=== PATIENT | male | born 1945 | race African-American/Black ===

== ENCOUNTER → 2018-05-08 | Outpatient (CLI) | payer OTHER ==
[~2018-05-08] MED LIST: ACET500T68 PO; ASPI81TA50 PO; FLUT100D IH; GLIP5TAB10 PO; GUAI600T47 PO; IOHEXOL 180 MG/ML 10 ML VIAL. ONE; LEVO125T5 PO; LISI-130 PO; LORA10TA3 PO; NAPR500T8 PO; NIFE90TA PO; SPIR25TA5 PO; TERA10CA3 PO; methylPREDNISolone ACETATE 40 MG/ML VIAL. ONE; methylPREDNISolone ACETATE 80 MG/ML VIAL. ONE
--- NOTE | 2018-05-08 14:27 | PAIN ---
DATE OF SERVICE: 05/08/2018 INITIAL CONSULTATION FOR PAIN CLINIC CHIEF COMPLAINT: Low back and right lower extremity pain. HISTORY OF PRESENT ILLNESS: This is a 72-year-old male who presents with a history of pain in the low back since about 2004, worse over the past year, increasing with walking and standing, better with sitting or lying down. The patient reports the pain is across the low back, more on the right side than the left, into the right posterior gluteus, posterior thigh, lateral thigh as well as the medial anterior thigh and medial lower leg as well as the posterior lower leg. Reports some numbness and tingling in his foot too, but attributes this some to diabetic neuropathy that he has. The patient reports the pain is becoming more constant. It is aching pain and across the low back, shooting and stabbing into the right lower extremity. The patient reports it is a 10 on a scale of 10 with family and home responsibilities. His disability rating goes from 0-10, 10 being the worst, 10 with recreation, social activity and sexual behavior; occupation as a 9; 6 with self-care and 1 with life support activities. The patient did have an MRI scan of the lumbar spine showing a multilevel degenerative change, worse from L2-L3 to L4-L5, with severe central canal stenosis and foraminal narrowing, each of these levels causing severe canal and bilateral foraminal stenosis, L2-L3, L3-L4 and L4-L5 with moderate to severe right and mild left foraminal stenosis at L5-S1. The patient has had physical therapy in the past, which was not significantly helpful. He also has had physical therapy for his knees and currently doing exercise as well. The patient is taking Tylenol, which has helped, but only by about 20%. He has had no other modalities of the treatments or chiropractic modalities or other medications at this time. The patient reports it is worse with walking, standing with significant fatigability with the right leg compared to the left, but no overt motor loss. PAST MEDICAL HISTORY: Significant for type 2 diabetes, hearing loss, congestive heart failure, no previous surgeries, and history of arthritis. CURRENT MEDICATIONS: Include daily baby aspirin, fluticasone, glipizide, lisinopril, acetaminophen, Mucinex, terazosin, spironolactone, Procardia, naproxen and loratadine. ALLERGIES: The patient has no known drug allergies. FAMILY HISTORY: Significant for no major medical problems or conditions he is aware of. SOCIAL HISTORY: The patient does not drink alcohol, does not smoke. Does not use any illegal, illicit or recreational drugs. He is single. Lives locally in [place], [place]. REVIEW OF SYSTEMS: The patient's review of systems is positive for those items mentioned in history of present illness. All systems reviewed and otherwise negative. It is complete, full and well documented on the patient's chart. PHYSICAL EXAMINATION: VITAL SIGNS: The patient's blood pressure is ____, pulse is 78, respirations 18, temperature is 97.9 degrees Fahrenheit, height is 5 feet 9 inches, weight is 321 pounds. GENERAL: The patient is awake, alert, oriented, appropriate, has very pleasant demeanor. HEENT: Shows normocephalic, atraumatic. Extraocular movements are intact and symmetrical. Oral cavity shows mucous membranes moist and pink. Dentition is intact. NECK: Shows anterior throat supple without palpable lymphadenopathy noted. Swallow reflex is symmetrical. CHEST: Shows normal with inspection. Breath sounds are clear to auscultation bilaterally. HEART: Shows S1, S2 clear. No murmurs auscultated. ABDOMEN: Soft, nontender, nondistended, obese. No palpable organomegaly is noted. No rebound or guarding demonstrated. MUSCULOSKELETAL: Back shows spine grossly in the midline, slight exaggeration of thoracic kyphosis and minor flattening of lumbar lordotic curvature. Lumbar paraspinous muscle shows symmetrical on inspection; on palpation shows some moderate tenderness diffusely throughout the middle and lower distribution of paraspinous muscles, but only diffusely without significant radiation. The patient's lower extremities show deep tendon reflexes at 1+ in the patellar and tendo-calcaneus tendons. Motor exam is strong with approximately 4 on a scale of 5, but equal and symmetrical dorsiflexion, extension, quadriceps and hamstring flexion bilaterally. Peripheral pulses are 1+ posterior tibia. No peripheral edema is noted. Lower extremities are warm and dry to touch, equal in color and appearance. The patient has negative straight leg raise bilaterally as is negative Gaenslen and Jori maneuver bilaterally as well. The patient is able to stand, has some difficulty from seated to a standing position with pain reported, but with standing has a slightly shuffling gait. Does not appear to favor the right or left lower extremity significantly, but is using a cane in his right hand to ambulate. SKIN: Shows warm and dry, good turgor. No edema. No sores, rashes or bruising. IMPRESSION: 1. This is a 72-year-old male with long history of low back pain, right lower extremity pain, worse over the past year. 2. MRI scan of the lumbar spine as noted. 3. Obesity. 4. Type 2 diabetes. PLAN: Options were discussed with the patient including conservative medical management, physical therapies, interventional techniques and he would like to pursue interventional techniques. We discussed a lumbar epidural steroid injection using description as well as anatomical models to describe the procedure. Risks were then discussed including, but not limited to, bleeding, infection, possibility of epidural hematoma and subsequent neurological compromise, dural puncture, headaches, spinal cord and/or nerve damage, side effects of steroid medication and poor results regarding pain control. The patient understands and wished to proceed. The patient will return to clinic in approximately 2 weeks for a followup, was counseled on return appointment, activity level and side effects to be aware of. DIAGNOSES: Lumbar radiculopathy with lumbar degenerative disk disease, lumbar spinal stenosis. PROCEDURE: Lumbar epidural steroid injection, translaminar approach at the L5-S1 level using C-arm fluoroscopic guidance under sterile prep and drape using local anesthetic. MEDICATIONS INJECTED: A total of 120 mg Depo-Medrol plus 10 mL of preservative-free normal saline and 2 mL of Isovue for contrast. CONDITION AT DISCHARGE: Stable. The patient tolerated procedure well, had no complications. SMITA MERCADO MD DR: CHRISTY/dontae JOB#: [id number] / [id number]
== END | disposition home or self-care (01) ==
LOC: PNCL 10:35
PROVIDERS: ATTEND Anesthesiology
DX: M51.16 Intervertebral disc disorders with radiculopathy, lumbar region (principal); M48.061 Spinal stenosis, lumbar region without neurogenic claudication; E11.9 Type 2 diabetes mellitus without complications; E66.9 Obesity, unspecified; H91.90 Unspecified hearing loss, unspecified ear; Z79.82 Long term (current) use of aspirin; Z79.84 Long term (current) use of oral hypoglycemic drugs
CPT/HCPCS: 62323; J1030; J1040; Q9965

== ENCOUNTER → 2018-05-28 | Outpatient (CLI) | payer OTHER ==
[~2018-05-28] MED LIST changes: -IOHEXOL 180 MG/ML 10 ML VIAL. ONE; -methylPREDNISolone ACETATE 40 MG/ML VIAL. ONE; -methylPREDNISolone ACETATE 80 MG/ML VIAL. ONE
--- NOTE | 2018-05-28 11:55 | PAIN ---
DATE OF SERVICE: 05/28/2018 PROGRESS NOTE FOR PAIN CLINIC DIAGNOSES: Lumbar radiculopathy with lumbar degenerative disk disease and lumbar spinal stenosis. HISTORY OF PRESENT ILLNESS: The patient is a 72-year-old male who returns for followup status post lumbar epidural steroid injection x 1. The patient reports about 80% improvement in his low back pain, doing very well. The patient reports pain is still decreased even after about 2-1/2 weeks since his injection. The patient reports he is sleeping well at night. He is increasing his distance walking, doing household activities with greater ease and comfort, getting around much better, traveling with ease and comfort as well. The patient reports he still has some pain across the low back and into his right lower extremity but minimal in the lower extremity. At this point, the patient reports the pain is 8 on a scale 10 at its worst, 7 on average, 7 at its least and is a 7 today. The patient reports it is aching, tight, cramping, severe, occasionally shooting into the right leg but very unusual now to do this with ambulation. The patient reports no new motor or sensory deficits and no new bowel or bladder incontinence or other complaints. PHYSICAL EXAMINATION: VITAL SIGNS: The patient's blood pressure 134/72, pulse 71, respirations 16 and temperature is 97.3 degrees Fahrenheit. Weight is 321 pounds. GENERAL: The patient awake, alert, oriented, appropriate and very pleasant demeanor. HEENT: Head shows normocephalic and atraumatic. Extraocular movements are intact and symmetrical. Oral cavity, mucous membranes are moist and pink. Dentition is intact. NECK: Shows anterior throat supple, without palpable lymphadenopathy noted. Swallow reflex symmetrical. CHEST: Shows normal on inspection. Breath sounds are clear to auscultation bilaterally. HEART: Shows S1 and S2 clear. No murmurs auscultated. ABDOMEN: Soft, obese, nontender and nondistended. No palpable organomegaly is noted. No rebound or guarding demonstrated. BACK: Shows spine grossly in the midline. Normal-appearing cervical lordotic curvature, thoracic kyphotic curvature and some minor flattening of lumbar lordotic curvature. Lumbar paraspinal musculature shows symmetrical on inspection, with palpation shows some moderate tenderness but only diffusely in the low lumbar distribution bilaterally without radiation. The patient has good rotational motion of the lumbar spine, both laterally as well extension and flexion without difficulty. EXTREMITIES: Lower extremities show deep tendon reflexes 1+ in the patellar and tendo-calcaneus tendons are equal. Motor exam is 4 on a scale of 5 but equal and symmetrical with dorsiflexion, extension, quadriceps and hamstring flexion. Peripheral pulses are 1+ posterior tibia. No peripheral edema noted bilaterally. Options were discussed with the patient. The patient's old chart was reviewed as well as his current medication regimen updated. Current review of systems updated today as well. We will hold on any further injections at this time per the patient's request as he is doing quite a bit better with the low back pain. The patient complains still some knee pain and some right hip pain. We will hold on at this time. The patient will return on an as needed basis. The patient was encouraged to increase his activity as tolerated, but to be cautious with lifting and bending and stooping activities. The patient will follow up at this time an as needed basis. SMITA MERCADO MD DR: CHRISTY/dontae JOB#: [id number] / [id number]
== END | disposition home or self-care (01) ==
LOC: PNCL 11:07
PROVIDERS: ATTEND Anesthesiology
DX: M51.16 Intervertebral disc disorders with radiculopathy, lumbar region (principal); M48.061 Spinal stenosis, lumbar region without neurogenic claudication
CPT/HCPCS: G0463

== ENCOUNTER → 2018-06-25 | Outpatient (CLI) | payer OTHER ==
[~2018-06-25] MED LIST changes: +IOHEXOL 180 MG/ML 10 ML VIAL. ONE; +methylPREDNISolone ACETATE 40 MG/ML VIAL. ONE; +methylPREDNISolone ACETATE 80 MG/ML VIAL. ONE
--- NOTE | 2018-06-25 20:07 | PAIN ---
DATE OF SERVICE: 06/25/2018 PROGRESS NOTE FOR PAIN CLINIC DIAGNOSES: Lumbar radiculopathy with lumbar spinal stenosis, lumbar degenerative disk disease. HISTORY OF PRESENT ILLNESS: The patient is a 72-year-old male who returns for followup status post lumbar epidural steroid injection x 1. The patient reports back to 80% improvement. We have seen him back on May 28 after his injection, which was on May 08 and he was doing quite well, wanted to wait on any further interventions. The patient reports the pain is beginning to return now in the low back into the right lower extremity, mostly in the posterior gluteus, posterior thigh but only minimal compared to what it was before but it is becoming more noticeable daily. The patient reports it is increasing, rated as 7 on a scale of 10 at its worst, 5 on average, 5 at its least and is a 5 today. Cramping pain, aching, dull, occasionally shooting and on and off in intensity, worse with walking and standing but is still doing better with increased activity, walking and doing work activities as well as a home activity and traveling with greater ease. The patient reports he is sleeping well at night, generally does not awaken her from sleep. No new motor or sensory deficits and no new bowel or bladder incontinence. PHYSICAL EXAMINATION: VITAL SIGNS: The patient's blood pressure 166/67, pulse 78, respirations 18 and temperature 97.5 degrees Fahrenheit. Height is 5 feet 9 inches and weighs 322 pounds. GENERAL: The patient is awake, alert, oriented, appropriate and very pleasant demeanor. HEENT: Head shows normocephalic and atraumatic. Extraocular movements are intact and symmetrical. Oral cavity: Mucous membranes moist and pink. Dentition is intact. NECK: Shows anterior throat supple without palpable lymphadenopathy noted. Swallow reflex symmetrical. CHEST: Shows normal on inspection. Breath sounds clear to auscultation bilaterally. HEART: Shows S1 and S2 clear. No murmurs auscultated. ABDOMEN: Obese but soft, nontender and nondistended. BACK: Shows spine grossly in the midline, normal-appearing cervical lordotic curvature, thoracic kyphotic curvature and lumbar lordotic curvature. Lumbar paraspinous muscle shows symmetrical on inspection and on palpation shows some moderate tenderness but only diffusely without significant radiation. The patient shows good rotational motion of the lumbar spine, both laterally as well as extension and flexion without difficulty. EXTREMITIES: Lower extremities show deep tendon reflexes 1+ in the patella and tendo-calcaneus tendons. Motor exam approximately 4 on a scale of 5 but equal and symmetrical with dorsiflexion, extension, quadriceps and hamstring flexion. Peripheral pulses are 1+ posterior tibial. No peripheral edema is noted. Options were discussed with the patient. The patient's old chart was reviewed as well as his current medication regimen updated. Current review of systems updated today as well. We will proceed with a second in the series of lumbar epidural steroid injection today with fluoroscopic guidance. Risks were again discussed including, but not limited to bleeding, infection, possibility of epidural hematoma, subsequent neurological compromise, dural puncture headache, spinal cord and/or nerve damage, side effects of steroid medication and poor results regarding pain control. The patient understands and wished to proceed. The patient will return to the clinic in approximately 2 weeks for followup, was counseled as to return appointment, activity level and side effects to be aware of. DIAGNOSES: Lumbar radiculopathy with lumbar spinal stenosis and lumbar degenerative disk disease. PROCEDURE: Lumbar epidural steroid injection, translaminar approach at the L5-S1 level using C-arm fluoroscopic guidance under sterile prep and drape using local anesthetic. MEDICATION INJECTED: A total of 120 mg Depo-Medrol plus 10 mL of preservative-free normal saline and 2 mL of Isovue for contrast. CONDITION AT DISCHARGE: Stable. The patient tolerated the procedure well and had no complications. SMITA MERCADO MD DR: CHRISTY/dontae JOB#: [id number] / [id number]
== END | disposition home or self-care (01) ==
LOC: PNCL 10:20
PROVIDERS: ATTEND Anesthesiology
DX: M51.16 Intervertebral disc disorders with radiculopathy, lumbar region (principal); M48.061 Spinal stenosis, lumbar region without neurogenic claudication
CPT/HCPCS: 62323; J1030; J1040; Q9965

== ENCOUNTER → 2018-07-23 | Outpatient (CLI) | payer OTHER ==
[~2018-07-23] MED LIST changes: -IOHEXOL 180 MG/ML 10 ML VIAL. ONE; -methylPREDNISolone ACETATE 40 MG/ML VIAL. ONE; -methylPREDNISolone ACETATE 80 MG/ML VIAL. ONE
--- NOTE | 2018-07-23 23:46 | PAIN ---
DATE OF SERVICE: 07/23/2018 DIAGNOSES: Lumbar radiculopathy with lumbar spinal stenosis, lumbar degenerative disk disease. HISTORY OF PRESENT ILLNESS: The patient for a 72-year-old male who returns for followup status post lumbar epidural steroid injection x 2. The patient reports about 90% improvement after the last injection, which was 1 month ago. The patient reports still pain in the low back, but very infrequent. The patient reports it occasionally radiates into the lower extremity, right greater than left, but only with excessive walking or standing. The patient has been walking greater distances, doing activities at home as well as household activities, travelling with greater ease, sleeping with great comfort, not awakening him from sleep at this time. The patient reports his pain is cramping and aching, tight in the low back itself and also some knee pain bilaterally, which are degenerative changes as well, but the patient reports his pain is back. It is a 7 on a scale of 10 at its worst, average and at its least and is a 7 today. The patient reports no new motor or sensory deficits, no new bowel or bladder incontinence or other complaints. PHYSICAL EXAMINATION: VITAL SIGNS: The patient's blood pressure is 157/69, pulse 77, respirations 18, temperature 97.7 degrees Fahrenheit, height is 5 feet 9 inches, weight is 326 pounds. GENERAL: The patient is awake, alert, oriented, appropriate, very pleasant demeanor. HEENT: Exam shows normocephalic, atraumatic. Extraocular movements are intact and symmetrical. Oral cavity: Mucous membranes moist and pink. Dentition is intact. NECK: Shows anterior throat supple without palpable lymphadenopathy noted. Swallow reflex is symmetrical. CHEST: Shows normal on inspection. Breath sounds are clear to auscultation bilaterally. HEART: Shows S1, S2 clear. No murmurs auscultated. ABDOMEN: Soft, nontender, nondistended, obese. No palpable organomegaly is noted. No rebound or guarding demonstrated. BACK: Shows spine grossly in the midline. Normal appearing thoracic kyphosis and lumbar lordotic curvature. Lumbar paraspinous muscle shows symmetrical on inspection. On palpation shows some moderate tenderness, but only diffusely without radiation. The patient's back shows good rotational motion both laterally as well as extension and flexion without pain reported. EXTREMITIES: Lower extremities show deep tendon reflexes at 1+ in the patellar and tendo calcaneus tendons are equal. Motor exam is approximately 4 on a scale of 5, but symmetrical with dorsiflexion, extension, quadriceps and hamstring flexion. Peripheral pulses are 1+ posterior tibia. No peripheral edema is noted bilaterally. Options were discussed with the patient. The patient's old chart was reviewed as was his current medication regimen updated. Current review of systems is updated today as well and we will hold on any further injections at this time as the patient is doing quite a bit better. We would like to wait and see how he does with time. He is encouraged to increase his activity as tolerated. He was doing stretching and strengthening exercises as well. We showed him some stretching exercises to do with low back as well as followup with his orthopedic physician at the [facility] for his knee pain. The patient can follow up in approximately one month tentatively or sooner if necessary. SMITA MERCADO MD DR: CHRISTY/dontae JOB#: [id number] / [id number]
== END | disposition home or self-care (01) ==
LOC: PNCL 10:50
PROVIDERS: ATTEND Anesthesiology
DX: M51.16 Intervertebral disc disorders with radiculopathy, lumbar region (principal); M48.061 Spinal stenosis, lumbar region without neurogenic claudication
CPT/HCPCS: G0463

== ENCOUNTER → 2018-08-20 | Outpatient (CLI) | payer OTHER ==
[~2018-08-20] MED LIST changes: +IOHEXOL 180 MG/ML 10 ML VIAL. ONE; +methylPREDNISolone ACETATE 40 MG/ML VIAL. ONE; +methylPREDNISolone ACETATE 80 MG/ML VIAL. ONE
--- NOTE | 2018-08-21 00:21 | PAIN ---
DATE OF SERVICE: 08/20/2018 DIAGNOSES: Lumbar radiculopathy with lumbar spinal stenosis, lumbar degenerative disk disease. HISTORY OF PRESENT ILLNESS: The patient is a 72-year-old male who returns for followup status post lumbar epidural steroid injection x 2. The patient reports good improvement, about 50% at least in the low back and right lower extremity. The patient reports still some pain in the low back and right leg, but has it for several weeks, was doing quite a bit better, was increasing his distance walking, doing better activity at work and household activities, traveling with greater ease and comfort. The patient reports he is sleeping better at night, still does not awaken him from sleep. The patient reports his pain now has returned; however, over the past few days is 8 on a scale of 10 at its worst and average and at its least it is 8 today. The patient reports it is cramping, aching, tight, shooting in the right posterior gluteus, posterior thigh, posterior calf, again worse with walking and standing, better with sitting or lying down. The patient reports no new motor or sensory deficits, no new bowel or bladder incontinence or other complaints. PHYSICAL EXAMINATION: VITAL SIGNS: The patient's blood pressure is 128/58, pulse 84, respirations 18, temperature 97.4 degrees Fahrenheit, height is 5 feet 9 inches, weight is 331 pounds. GENERAL: The patient is awake, alert, oriented, appropriate, very pleasant demeanor. HEENT: Shows normocephalic, atraumatic. Extraocular movements are intact and symmetrical. Oral cavity: Mucous membranes moist and pink. Dentition is intact. NECK: Shows anterior throat supple without palpable lymphadenopathy noted. Swallow reflex is symmetrical. CHEST: Shows normal with inspection. Breath sounds clear to auscultation bilaterally. HEART: Shows S1, S2 clear. No murmurs auscultated. ABDOMEN: Soft, nontender, nondistended. No palpable organomegaly is noted. No rebound or guarding demonstrated. BACK: Shows spine grossly in the midline. Slight exaggeration of thoracic kyphosis, some minor flattening of lumbar lordotic curvature. Lumbar paraspinous muscle shows symmetrical on inspection, on palpation shows some moderate tenderness diffusely, but only diffusely bilaterally without radiation. The patient shows good rotational motion of the lumbar spine, both laterally as well as extension and flexion. EXTREMITIES: Lower extremities show deep tendon reflexes 1+/4 in the patellar and tendo calcaneus tendons. Motor exam is approximately 4 on a scale of 5, but symmetrical with dorsiflexion, extension, quadriceps and hamstring flexion and equal. Peripheral pulses are 1+ posterior tibia. No peripheral edema is noted. Options were discussed with the patient. The patient's old chart was reviewed as was his current medication regimen updated. Current review of systems updated today as well. We will proceed with a third in the series of lumbar epidural steroid injection today with fluoroscopic guidance. Risks were again discussed including, but not limited to bleeding, infection, possibility of epidural hematoma, subsequent neurological compromise, dural puncture, headaches, spinal cord and/or nerve damage, side effects of steroid medication and poor results regarding pain control. The patient understands and wished to proceed. The patient to return to clinic in approximately 2 weeks for followup, was counseled as to return appointment, activity level and side effects to be aware of. DIAGNOSIS: Lumbar radiculopathy with lumbar spinal stenosis, lumbar degenerative disk disease. PROCEDURE: Lumbar epidural steroid injection, translaminar approach L5-S1 level using C-arm fluoroscopic guidance under sterile prep and drape using local anesthetic. MEDICATION INJECTED: A total of 120 mg of Depo-Medrol plus 10 mL of preservative-free normal saline and 2 mL of isovue for contrast. Condition on discharge was stable. The patient tolerated the procedure well, had no complications. SMITA MERCADO MD DR: CHRISTY/dontae JOB#: [id number] / [id number]
== END | disposition home or self-care (01) ==
LOC: PNCL 10:56
PROVIDERS: ATTEND Anesthesiology
DX: M51.16 Intervertebral disc disorders with radiculopathy, lumbar region (principal); M48.061 Spinal stenosis, lumbar region without neurogenic claudication
CPT/HCPCS: 62323; J1030; J1040; Q9965

== ENCOUNTER → 2019-03-06 | Outpatient (CLI) | payer OTHER ==
--- NOTE | 2019-03-06 19:28 | PAIN ---
DATE OF SERVICE: 03/06/2019 PROGRESS NOTE FOR PAIN CLINIC DIAGNOSES: Lumbar radiculopathy with lumbar spinal stenosis, lumbar degenerative disk disease. HISTORY OF PRESENT ILLNESS: The patient is a 73-year-old male who returns for followup status post lumbar epidural steroid injections, last seen on 08/20/2018. The patient did very well with this, about 80% improvement, but the pain has returned now over the past month in the low back and the bilateral lower extremities, worse on the right than the left. The patient reports it is a 9 on a scale of 10 at its worst in the past week, 9 on average, 9 at its least and is a 9 today. The patient reports it is aching, shooting, becoming unbearable, severe with walking, standing, better with sitting or lying down, does not awaken him from sleep at night, with standing, even for a few minutes, the pain begins to become more noticeable and then after about 15 minutes or so, he must sit down and rest to get the pain decreased. The patient reports having difficulty taking care of household activities and is requesting some assistance at home. We will give him a note requesting us today by his request also. PHYSICAL EXAMINATION: VITAL SIGNS: The patient's blood pressure 134/65, pulse 76, respirations 18, temperature 97.8 degrees Fahrenheit, height is 5 feet 8 inches, weight is 335 pounds. GENERAL: The patient is awake, alert, oriented, appropriate, very pleasant demeanor. HEENT: Head shows normocephalic, atraumatic. Extraocular movements are intact and symmetrical. Oral cavity: Mucous membranes moist and pink. Dentition is intact. NECK: Shows anterior throat supple without palpable lymphadenopathy noted. Swallow reflex symmetrical. CHEST: Shows normal on inspection. Breath sounds clear to auscultation bilaterally. HEART: Shows S1, S2 clear. No murmurs auscultated. ABDOMEN: Soft, nontender, nondistended. No palpable organomegaly is noted. No rebound or guarding demonstrated. BACK: Shows spine grossly in the midline. Normal appearing thoracic kyphosis minor flattening of lumbar lordotic curvature. Lumbar paraspinous muscle shows symmetrical on inspection, on palpation shows some moderate tenderness diffusely without significant radiation. EXTREMITIES: The patient's lower extremities show deep tendon reflexes at 1+ in the patellar and tendo-calcaneus tendons. Motor exam is 4 on a scale of 5, but symmetrical dorsiflexion, extension, quadriceps and hamstring flexion and equal. Peripheral pulses are 1+ posterior tibial. No peripheral edema is noted. Options were discussed with the patient. The patient's old chart was reviewed as his current medication regimen updated. Current review of systems updated today as well and we will proceed with a lumbar epidural steroid injection today with fluoroscopic guidance. Risks were again discussed including, but not limited to bleeding, infection, possibility of epidural hematoma, subsequent neurological compromise, dural puncture, headaches, spinal cord and/or nerve damage, side effects of steroid medication and poor results regarding pain control. The patient understands and wished to proceed. The patient will return to clinic in approximately 2 weeks for followup, was counseled as to return appointment, activity level and side effects to be aware of. DIAGNOSES: Lumbar radiculopathy with lumbar spinal stenosis, lumbar degenerative disk disease. PROCEDURE: Lumbar epidural steroid injection, translaminar approach L5-S1 level using C-arm fluoroscopic guidance under sterile prep and drape using local anesthetic. MEDICATION INJECTED: A total of 120 mg Depo-Medrol plus 10 mL of preservative-free normal saline and 2 mL of contrast. CONDITION AT DISCHARGE: Stable. The patient tolerated the procedure well, had no complications. SMITA MERCADO MD DR: CHRISTY/dontae JOB#: [id number] / [id number]
== END ==
LOC: PNCL 08:09
PROVIDERS: ATTEND Anesthesiology
DX: M51.16 Intervertebral disc disorders with radiculopathy, lumbar region (principal); M48.061 Spinal stenosis, lumbar region without neurogenic claudication
CPT/HCPCS: 62323; J1030; J1040; Q9965

== ENCOUNTER → 2019-04-22 | Outpatient (CLI) | payer OTHER ==
--- NOTE | 2019-04-22 13:57 | PAIN ---
DATE OF SERVICE: 04/22/2019 PROGRESS NOTE FOR PAIN CLINIC DIAGNOSES: Lumbar radiculopathy with lumbar spinal stenosis, lumbar degenerative disk disease. HISTORY OF PRESENT ILLNESS: The patient is a 73-year-old male who returns for followup status post lumbar epidural steroid injection x 1 in this series, did very well after the last injection with about 80% improvement. The patient reports the pain is returning now after the first few weeks in the low back into the right lower extremity, posterior gluteus, posterior thigh, posterior calf, some on the anterior thigh as well, worse with walking, standing, changing positions. The patient reports it is aching, sharp, cramping, constant and shooting. The patient reports it is an 8 on a scale of 10 at all times, worst, least and average over the past week and is an 8 today. The patient reports it does not awaken him from sleep at night, better with sitting or lying down, worse with walking, standing, changing positions. PHYSICAL EXAMINATION: VITAL SIGNS: The patient's blood pressure 122/57, pulse 83, respirations 18, temperature 97.3 degrees Fahrenheit, height is 5 feet 9 inches, weight is 334 pounds. GENERAL: The patient is awake, alert, oriented, appropriate, very pleasant demeanor. HEENT: Shows normocephalic, atraumatic. Extraocular movements are intact and symmetrical. Oral cavity, mucous membranes are moist and pink. Dentition is intact. NECK: Shows anterior throat supple without palpable lymphadenopathy noted. Swallow reflex symmetrical. CHEST: Shows normal on inspection. Breath sounds clear bilaterally. HEART: Shows S1, S2 clear. No murmurs auscultated. ABDOMEN: Soft, nontender, nondistended. BACK: Shows spine grossly in the midline. Normal-appearing thoracic kyphosis and minor flattening of lumbar lordotic curvature. Lumbar paraspinous muscle shows symmetrical, but with palpation shows some mild tenderness diffusely in the low lumbar distribution only without radiation. The patient has good rotational motion of lumbar spine, both laterally as well as extension and flexion without significant difficulty. EXTREMITIES: Lower extremities show deep tendon reflexes 1+ in the patellar and tendo calcaneus tendons. Motor exam is approximately 4 on a scale of 5, but symmetrical and equal with dorsiflexion, extension, quadriceps and hamstring flexion. Peripheral pulses are 1+ posterior tibia. No peripheral edema is noted. Options were discussed with the patient. The patient's old chart was reviewed as his current medication regimen updated. Current review of systems updated today as well. We will proceed with a second in a series of lumbar epidural steroid injection today with fluoroscopic guidance. Risks were again discussed including, but not limited to bleeding, infection, possibility of epidural hematoma, subsequent neurologic compromise, dural puncture, headaches, spinal cord and/or nerve damage, side effects of steroid medication and poor results regarding pain control. The patient understands and wished to proceed. The patient will return to the clinic in approximately 2 weeks for followup. She was counseled as to return appointment, activity level and side effects to be aware of. DIAGNOSIS: Lumbar radiculopathy with lumbar spinal stenosis, lumbar degenerative disk disease. PROCEDURE: Lumbar epidural steroid injection, translaminar approach L5-S1 level using C-arm fluoroscopic guidance under sterile prep and drape using local anesthetic. MEDICATION INJECTED: A total of 120 mg Depo-Medrol plus 10 mL of preservative-free normal saline and 2 mL of contrast. CONDITION AT DISCHARGE: Stable. The patient tolerated the procedure well, had no complications. SMITA MERCADO MD DR: CHRISTY/dontae JOB#: [id number] / [id number]
== END ==
LOC: PNCL 10:13
PROVIDERS: ATTEND Anesthesiology
DX: M51.16 Intervertebral disc disorders with radiculopathy, lumbar region (principal); M48.061 Spinal stenosis, lumbar region without neurogenic claudication
CPT/HCPCS: 62323; J1030; J1040; Q9965